=== PATIENT | male | born 1975 | race Hispanic/Latino ===

== ENCOUNTER → 2023-12-20 | Emergency (ER) | payer OTHER ==
[~2023-12-20] MED LIST: INSULIN REGULAR (HUMAN) 100 UNIT/ML ONE; MORPHINE 4 MG/ML SYR ONE; NA CHLORIDE 0.9% 1,000 ML ONE; ONDANSETRON 4 MG/2 ML VIAL ONE
[2023-12-20 10:36] LABS: Protime INR 1.18
[2023-12-20 10:40] LABS: Absolute Lymphocytes (CBC) 0.7 K/uL (0.7-4.9); Lymphocytes % 25.9 % (15.3-44.8); MCV 75.3 fL (80-100); MPV 8.2 fL (7.6-11.3); Platelets 92 thou/uL (152-406); RBC Red Blood Cell Count 4.51 M/uL (4.33-5.43)
[2023-12-20 10:59] LABS: Troponin High Sensitivity 4.7 pg/mL (<58.9)
[2023-12-20 11:21] LABS: ALT/SGPT 43 U/L (16-61); Albumin 3.5 g/dL (3.4-5.0); Alkaline Phosphatase 168 U/L (45-117); BUN Blood Urea Nitrogen 11 mg/dL (7-18); Bicarbonate 20 mEq/L (21-32); Bilirubin Direct 0.2 mg/dL (0-0.2); Bilirubin Indirect, Calculated 0.3 mg/dL (0.2-0.8); Bilirubin Total 0.5 mg/dL (0.2-1.0); Glomerular Filtration Rate 110 ml/min (=/>90); Glucose Level 391 mg/dL (74-106); Protein, Total 8.1 g/dL (6.4-8.2); Sodium Level 131 mEq/L (136-145)
[2023-12-20 11:22] LABS: AST/SGOT 33 U/L (15-37); Magnesium 2.1 mg/dL (1.6-2.4); NT PRO-BNP < 5 pg/mL (<125); Potassium 4.3 mEq/L (3.5-5.1)
[2023-12-20 11:40] LABS: White Blood Cell Scan OK (OK)
[2023-12-20 11:41] LABS: Anisocytosis 1+; Blood Morphology Comment NOTED (NOT SEEN); Platelet Estimate DECR
--- NOTE | 2023-12-20 12:25 | RAD REPORT ---
EXAM DESCRIPTION: CT - Angio Aorta For Dissection - 12/20/2023 11:25 am CLINICAL HISTORY: Dissection;Pain;Epigastric pain COMPARISON: No comparisons TECHNIQUE: Thin axial CT images of the chest, abdomen, and pelvis were obtained during administratio n of 100mL Isovue 370 IV contrast. Sagittal and coronal reconstructions as well as maximal intensity projection reconstruction were generated and reviewed per an aortic angiography protocol. All CT scans are performed using dose optimization technique as appropriate and may include automated exposure control or mA/KV adjustment according to patient size. FINDINGS: Aorta is normal in diameter with no dissection or other acute aortic findings. Reconstruct ion images show no significant findings. Pulmonary arteries are normal as well. No mass or infiltrate in the lung parenchyma. No pleural thickening, pleural effusion or pneumothorax . No abnormal mediastinal or hilar mass or lymphadenopathy seen. No chest wall mass or abnormal axillar y lymphadenopathy. Celiac, SMA and renal arteries show no suspicious findings. Few small gallstones layering dependently near the neck. Splenomegaly with spleen measuring 17.7 cm in long axis. Sequelae of right hemicolect russel. Colonic diverticulosis. Focus of metallic radiodensity along the distal stomach, may represent a n endoscopic clip. Solid abdominal viscera and bowel show no significant findings. No mass or abnorma l lymphadenopathy. IMPRESSION: No acute abnormalities on CT angiogram of the aorta. Incidental findings including cholelithiasis, splenomegaly, and sequelae of right hemicolectomy. .
--- NOTE | 2023-12-20 12:32 | RAD REPORT ---
EXAM DESCRIPTION: Teagan Single View12/20/2023 11:36 am CLINICAL HISTORY: CHEST PAIN COMPARISON: CHEST PA AND LAT 2 VIEW dated 06/13/2009 TECHNIQUE: Portable AP view of the chest. FINDINGS: The lungs are clear. No pneumothorax or effusion. The cardiomediastinal contours are unre markable. IMPRESSION: No acute cardiopulmonary process.
--- NOTE | 2023-12-20 12:48 | EDPHYS ---
Physician Documentation [facility] Name: Jasvir Stewart III Age: 48 yrs Sex: Male : 1975 Arrival Date: 12/20/2023 Time: 09:54 Bed 15 Private MD: ED Physician Alex Aldana HPI: 12/20 10:23 This 48 yrs old Male presents to ER via Ambulatory with complaints of Chest sb4 Pain. 10:23 The patient or guardian reports chest pain that is located primarily in the epigastric sb4 area. Onset: 3 week(s) ago. The pain does not radiate. Associated signs and symptoms: The patient has no apparent associated signs or symptoms. 10:37 patient reports pain in his epigastric region x 2-3 weeks. worse with deep inspiration sb4 and palpation. states he had an EGD with banding 3 weeks ago for esophageal varices. feels like he is having difficulty swallowing now. denies any vomiting, hematemesis, melena. Historical: - Allergies: 10:11 No Known Allergies; aa5 - Home Meds: 10:16 metformin ER 750mg [Active]; proglitazone 15mg [Active]; fenofibrate 160 mg oral tablet aa5 [Active]; Vitamin D2 oral [Active]; ibuprofen 400 mg Oral tablet [Active]; folic acid 1 mg Oral tablet [Active]; sertraline 50 mg oral tablet [Active]; - PMHx: 10:11 Diabetes mellitus; Colon Cancer; Cirrhosis of liver; aa5 - PSHx: 10:11 Colectomy; aa5 - Immunization history:: Adult Immunizations unknown. - Social history:: Smoking status: Patient denies any tobacco usage or history of. ROS: 10:37 Constitutional: Negative for fever, chills, and weight loss, sb4 10:37 ENT: Positive for 10:37 Cardiovascular: Positive for chest pain, 10:37 Abdomen/GI: Positive for nausea, dysphagia, 10:37 All other systems are negative, Exam: 10:37 Constitutional: This is a well developed, well nourished patient who is awake, alert, sb4 and in no acute distress. Head/Face: Normocephalic, atraumatic. Eyes: Extra-ocular motions intact. Periorbital areas with no swelling, redness, or edema. ENT: Mucous membranes moist. Respiratory: Lungs have equal breath sounds bilaterally, clear to auscultation and percussion. No rales, rhonchi or wheezes noted. No increased work of breathing, no retractions or nasal flaring. Abdomen/GI: Soft, non-tender, no distension. Back: No spinal tenderness. No costovertebral tenderness. Full range of motion. Skin: Warm, dry with normal turgor. Normal color with no rashes, no lesions, and no evidence of cellulitis. MS/ Extremity: Pulses equal, no cyanosis. Neurovascular intact. Full, normal range of motion. Neuro: Awake and alert, GCS 15, oriented to person, place, time, and situation. Motor strength 5/5 in all extremities. Sensory grossly intact. 10:37 Chest/axilla: Inspection: normal, Palpation: tenderness, that is moderate, of the xiphoid area, that partially reproduces the patient's complaints, Vital Signs: 09:58 BP 134 / 91; Pulse 93; Resp 18 S; Temp 98(TE); Pulse Ox 99% on R/A; Weight 77.11 kg aa5 (R); Height 5 ft. 9 in. (R); 10:15 BP 138 / 92; Pulse 98; Resp 16; Pulse Ox 98% on R/A; me1 11:00 BP 128 / 87; Pulse 95; Resp 16; Pulse Ox 99% on R/A; me1 12:00 BP 120 / 82; Pulse 94; Resp 16; Pulse Ox 98% on R/A; me1 09:58 Body Mass Index 25.10 (77.11 kg, 175.26 cm) aa5 MDM: 09:58 Patient medically screened. sb4 12:46 Data reviewed: vital signs, nurses notes. sb4 12:46 Historians other than the Patient: Spouse/Significant Other: . Care significantly sb4 affected by the following chronic conditions: Diabetes, Cancer. Counseling: I had a detailed discussion with the patient and/or guardian regarding the historical points, exam findings, and any diagnostic results supporting the discharge/admit diagnosis, lab results, radiology results, the need for outpatient follow up, a news producer, oncology, to return to the emergency department if symptoms worsen or persist or if there are any questions or concerns that arise at home. 12/20 10:09 Order name: Basic Metabolic Panel; Complete Time: 11:24 sb4 12/20 10:09 Order name: CBC with Diff; Complete Time: 11:42 sb4 12/20 10:09 Order name: LFT's; Complete Time: 11:24 sb4 12/20 10:09 Order name: Magnesium; Complete Time: 11:24 sb4 12/20 10:09 Order name: NT PRO-BNP; Complete Time: 11:24 sb4 12/20 10:09 Order name: PT-INR; Complete Time: 10:36 sb4 12/20 10:09 Order name: Troponin HS; Complete Time: 11:24 sb4 12/20 10:42 Order name: Manual Differential; Complete Time: 11:42 EDMS 12/20 10:42 Order name: CBC Smear Scan; Complete Time: 11:42 EDMS 12/20 10:09 Order name: XRAY Chest (1 view); Complete Time: 12:33 sb4 12/20 10:09 Order name: CT Aorta for Dissection; Complete Time: 12:26 sb4 12/20 10:09 Order name: EKG; Complete Time: 10:10 sb4 12/20 10:09 Order name: Cardiac monitoring; Complete Time: 10:23 sb4 12/20 10:09 Order name: EKG - Nurse/Tech; Complete Time: 10:23 sb4 12/20 10:09 Order name: IV Saline Lock; Complete Time: 10:23 sb4 12/20 10:09 Order name: Labs collected and sent; Complete Time: 10:23 sb4 12/20 10:09 Order name: O2 Per Protocol; Complete Time: 10:23 sb4 12/20 10:09 Order name: O2 Sat Monitoring; Complete Time: 10:23 sb4 EC:35 Rate is 93 beats/min. Rhythm is regular, Normal Sinus Rhythm. [place] interval is normal at sb4 180 msec. QRS interval is normal at 82 msec. QT interval is normal at 344 msec. No Q waves. T waves are Normal. No ST changes noted. Clinical impression: Normal ECG and No evidence of ischemia. Interpreted by me. Reviewed by me. Administered Medications: 12:09 Drug: Insulin Regular Human IVP 10 units IVP once {Co-Signature: db (Roxanne Enriquez me1 RN).} Route: IVP; Site: right antecubital; 12:49 Follow up: Response: No adverse reaction me1 12:10 Drug: NS 0.9% IV 1000 ml IV at 1 bolus Per protocol; 1000 mL bolus Route: IV; Rate: 1 me1 bolus; Site: right antecubital; 12:55 Follow up: IV Status: Completed infusion; IV Intake: 1000ml me1 12:54 Drug: morphine IVP or IV 4 mg IVP once over 4 mins Route: IVP; Infused Over: 4 mins; me1 Site: right antecubital; 13:04 Follow up: Response: No adverse reaction; Pain is decreased me1 12:54 Drug: Ondansetron IVP 4 mg IVP once; over 2 minutes Route: IVP; Site: right antecubital;me1 13:05 Follow up: Response: No adverse reaction; Nausea is decreased me1 Disposition Summary: 12/20/23 12:47 Discharge Ordered Notes: Location: Home sb4 Problem: an ongoing problem sb4 Symptoms: are unchanged sb4 Condition: Stable sb4 Diagnosis - Chest pain, unspecified sb4 Followup: sb4 - With: Emergency Department - When: As needed - Reason: Trouble breathing, Worsening of condition Discharge Instructions: - Discharge Summary Sheet sb4 - Nonspecific Chest Pain, Adult, [id number] sb4 Forms: - Medication Reconciliation Form sb4 - Thank You Letter sb4 - Antibiotic Education sb4 - Prescription Opioid Use sb4 - Patient Portal Instructions sb4 - Leadership Thank You Letter sb4 Signatures: Dispatcher [employer] Meg Briones RN RN aa5 Taylor Juares PA-C PAElvira sb4 Megan Ramirez RN RN me1 Roxanne Enriquez RN db
--- NOTE | 2023-12-20 12:48 | ER ---
Nurse's Notes [facility] Name: Jasvir Stewart III Age: 48 yrs Sex: Male : 1975 Arrival Date: 12/20/2023 Time: 09:54 Bed 15 Private MD: Diagnosis: Chest pain, unspecified Presentation: 12/20 09:58 Chief complaint: Patient states: chest pain x 3 weeks ago and SOB since yesterday. Pt's aa5 states "He had an EGD about 3 weeks ago and they placed some bands", pt reports he is scheduled for another EGD and Colonoscopy on Jan.05. 09:58 Onset of symptoms was 2023. aa03 16: Acuity: ASHLEE 3 :58 Method Of Arrival: Ambulatory :58 Coronavirus screen: At this time, the client does not indicate any symptoms associated aa5 with coronavirus-19. Ebola Screen: Patient denies travel to an Ebola-affected area in the 21 days before illness onset. Initial Sepsis Screen: Does the patient meet any 2 criteria? HR > 90 bpm. Does the patient have a suspected source of infection? No. Patient's initial sepsis screen is negative. Risk Assessment: Do you want to hurt yourself or someone else? Patient reports no desire to harm self or others. Historical: - Allergies: 10:11 No Known Allergies; aa5 - Home Meds: 10:16 metformin ER 750mg [Active]; proglitazone 15mg [Active]; fenofibrate 160 mg oral tablet aa5 [Active]; Vitamin D2 oral [Active]; ibuprofen 400 mg Oral tablet [Active]; folic acid 1 mg Oral tablet [Active]; sertraline 50 mg oral tablet [Active]; - PMHx: 10:11 Diabetes mellitus; Colon Cancer; Cirrhosis of liver; aa5 - PSHx: 10:11 Colectomy; aa5 - Immunization history:: Adult Immunizations unknown. - Social history:: Smoking status: Patient denies any tobacco usage or history of. Screenin:40 [facility] ED Fall Risk Assessment (Adult) History of falling in the last 3 months, me1 including since admission No falls in past 3 months (0 pts) Confusion or Disorientation No (0 pts) Intoxicated or Sedated No (0 pts) Impaired Gait No (0 pts) Mobility Assist Device Used No (0 pt) Altered Elimination No (0 pt) Score/Fall Risk Level 0 - 2 = Low Risk Maintained a safe environment, Provided non-skid footwear, Hourly rounding (assess needs \\T\\ fall precautionary measures) done. Abuse screen: Denies threats or abuse. Nutritional screening: No deficits noted. Tuberculosis screening: No symptoms or risk factors identified. Assessment: 10:40 General: Appears uncomfortable, well groomed, well developed, well nourished, Behavior me1 is calm, cooperative, appropriate for age, Reports midsternal chest pain x 3 weeks, worse with exertion. c/o lower back/sacral pain. Pain: Complains of pain in xiphoid area Pain does not radiate. Pain currently is 2 out of 10 on a pain scale. at worst was 10 out of 10 on a pain scale. Quality of pain is described as sharp, Pain began 3 weeks ago. Is continuous, Aggravated by increased activity. Neuro: Level of Consciousness is awake, alert, obeys commands, Oriented to person, place, time, situation, Appropriate for age. Cardiovascular: Reports chest pain, since 3 weeks ago. Worse with exertion. Capillary refill < 3 seconds Patient's skin is warm and dry. Respiratory: Airway is patent Trachea midline Respiratory effort is even, unlabored, Respiratory pattern is regular, symmetrical. Musculoskeletal: Reports pain in lower back/sacrum since 3 weeks ago. Vital Signs: 09:58 BP 134 / 91; Pulse 93; Resp 18 S; Temp 98(TE); Pulse Ox 99% on R/A; Weight 77.11 kg aa5 (R); Height 5 ft. 9 in. (R); 10:15 BP 138 / 92; Pulse 98; Resp 16; Pulse Ox 98% on R/A; me1 11:00 BP 128 / 87; Pulse 95; Resp 16; Pulse Ox 99% on R/A; me1 12:00 BP 120 / 82; Pulse 94; Resp 16; Pulse Ox 98% on R/A; me1 09:58 Body Mass Index 25.10 (77.11 kg, 175.26 cm) aa5 ED Course: 09:55 Patient arrived in ED. im 09:58 Taylor Juares PA-C is PHCP. sb4 09:58 Alex Aldana MD is Attending Physician. sb4 09:58 Arm band placed on. aa5 10:13 Megan Ramirez, RN is Primary Nurse. me1 10:15 Triage completed. aa5 10:23 Inserted saline lock: 20 gauge in right antecubital area, using aseptic technique. me1 10:23 Basic Metabolic Panel Sent. me1 10:23 CBC with Diff Sent. me1 10:23 LFT's Sent. me1 10:23 Magnesium Sent. me1 10:23 NT PRO-BNP Sent. me1 10:23 PT-INR Sent. me1 10:24 Troponin HS Sent. me1 10:40 Patient has correct armband on for positive identification. Bed in low position. Call me1 light in reach. Side rails up X2. Provided Education on: POC. Verbalized understanding. .. Client placed on continuous cardiac and pulse oximetry monitoring. NIBP monitoring applied. supervisor logging on. Pulse ox on. 10:40 No provider procedures requiring assistance completed. Patient maintains SpO2 me1 saturation greater than 95% on room air. 11:25 CT Aorta for Dissection In Process Unspecified. EDMS 11:33 XRAY Chest (1 view) In Process Unspecified. EDMS 13:06 IV discontinued, intact, bleeding controlled, No redness/swelling at site. Pressure me1 dressing applied. Administered Medications: 12:09 Drug: Insulin Regular Human IVP 10 units IVP once {Co-Signature: gabi (Roxanne Enriquez ca1 RN).} Route: IVP; Site: right antecubital; 12:49 Follow up: Response: No adverse reaction me1 12:10 Drug: NS 0.9% IV 1000 ml IV at 1 bolus Per protocol; 1000 mL bolus Route: IV; Rate: 1 me1 bolus; Site: right antecubital; 12:55 Follow up: IV Status: Completed infusion; IV Intake: 1000ml me1 12:54 Drug: morphine IVP or IV 4 mg IVP once over 4 mins Route: IVP; Infused Over: 4 mins; me1 Site: right antecubital; 13:04 Follow up: Response: No adverse reaction; Pain is decreased me1 12:54 Drug: Ondansetron IVP 4 mg IVP once; over 2 minutes Route: IVP; Site: right antecubital;me1 13:05 Follow up: Response: No adverse reaction; Nausea is decreased me1 Medication: 10:40 VIS not applicable for this client. me1 Intake: 12:55 IV: 1000ml; Total: 1000ml. me1 Outcome: 12:47 Discharge ordered by . sb4 13:06 Discharged to home ambulatory, with significant other, me1 13:06 Condition: stable 13:06 Discharge instructions given to patient, significant other, Instructed on discharge instructions, follow up and referral plans. Demonstrated understanding of instructions, follow-up care, 13:07 Patient left the ED. me1 Signatures: Dispatcher [employer] EDMeg Minor, RN RN aa5 Taylor Juares, PABelenC PABelenC sb4 Addie Du Michelle, RN RN me1 Roxanne Enriquez RN db Corrections: (The following items were deleted from the chart) 10:15 09:58 Chief complaint: Patient states: chest pain x 3 weeks ago and SOB since aa5 yesterday. Pt's states "He had an EEG about 3 weeks ago and they placed some bands", pt reports he is schedules for another EEG and Colonoscopy on Jan.05. aa5 10:16 10:14 Onset of symptoms was 2023 aa aa5 10:16 10:14 Acuity: ASHLEE 3 aa5 aa5
[2023-12-20 13:20] VITALS: BP 120/82; TEMP 98; O2SAT 98
== END ==
LOC: ER 09:54
DX: R07.9 Chest pain, unspecified (principal); E11.9 Type 2 diabetes mellitus without complications; K74.60 Unspecified cirrhosis of liver; Z85.038 Personal history of other malignant neoplasm of large intestine
CPT/HCPCS: 93005; 85025; 80048; 36415; 83735; 85610; 80076; 84484; 83880; 71275; 74175; 71045; Q9967; J1815; J2405; J7030